=== PATIENT | female | born 1955 | race Caucasian/White ===

== ENCOUNTER → 2021-08-30 16:21 | Outpatient (CLI) | payer BC, SELFPAY ==
--- NOTE | 2021-08-30 16:30 | XR_ITS ---
PROCEDURE INFORMATION: Exam: XR Chest Exam date and time: 08/30/2021 4:30 PM Age: 66 years old Clinical indication: Cough; Additional info: Covid out patient TECHNIQUE: Imaging protocol: XR of the chest. Views: 1 view. COMPARISON: No relevant prior studies available. FINDINGS: Lungs: Unremarkable. No consolidation. Pleural spaces: Unremarkable. No pleural effusion. No pneumothorax. Heart/Mediastinum: Unremarkable. No cardiomegaly. Bones/joints: Unremarkable. IMPRESSION: No acute findings.
[2021-08-30 17:49] LABS: Basophils # 0.1 K/mm3 (0-0.2); Eosinophils # 0.2 K/mm3 (0.0-0.4); Eosinophils % 2.3 % (0.1-12.0); Hematocrit 43.8 % (37.0-47.0); Hemoglobin 14.3 g/dL (12.2-16.2); Lymphocytes # 2.2 K/mm3 (0.7-4.5); Lymphocytes % 32.9 % (10-50); Mean Corpuscular HGB Conc 32.7 g/dL (31.8-35.4); Mean Corpuscular Volume 94.9 fl (81-99); Mean Platelet Volume 8.5 fl (7.4-10.4); Monocytes # 0.4 K/mm3 (0.1-1.0); Monocytes % 6.2 % (1.7-9.3); Neutrophils # 3.9 K/mm3 (1.8-7.8); Neutrophils % 57.5 % (37.0-80.0); Platelet Count 242 K/mm3 (142-424); Red Blood Count 4.61 M/mm3 (4.20-5.40); Red Cell Distribution Width 13.7 % (11.5-17.5); White Blood Count 6.7 K/mm3 (4.8-10.8)
== END ==
PROVIDERS: PCP Nurse Practitioner; Visit Provider Nurse Practitioner
DX: Z20.822 Contact with and (suspected) exposure to COVID-19 (principal)
CPT/HCPCS: 36415; 71045; 85025; 87275; 87276; C9803; U0003; U0005

== ENCOUNTER → 2023-01-31 10:44 | Outpatient (CLI) | payer BC, MEDICARE, SELFPAY ==
[2023-01-31 18:36] LABS: Basophils % 0.4 % (0.1-2.0); Eosinophils # 0.2 K/mm3 (0.0-0.4); Eosinophils % 3.9 % (0.1-12.0); Hematocrit 39.1 % (37.0-47.0); Hemoglobin 12.2 g/dL (12.2-16.2); Lymphocytes # 1.7 K/mm3 (0.7-4.5); Lymphocytes % 27.6 % (10-50); Mean Corpuscular HGB Conc 31.3 g/dL (31.8-35.4); Mean Corpuscular Hemoglobin 29.8 pg (27.0-31.2); Mean Corpuscular Volume 95.1 fl (81-99); Monocytes # 0.4 K/mm3 (0.1-1.0); Monocytes % 6.4 % (1.7-9.3); Neutrophils # 3.7 K/mm3 (1.8-7.8); Neutrophils % 61.7 % (37.0-80.0); Platelet Count 241 K/mm3 (142-424); Red Blood Count 4.11 M/mm3 (4.20-5.40)
[2023-01-31 18:46] LABS: Alanine Aminotransferase 32 U/L (12-78); Albumin Level 4.1 g/dl (3.5-5.0); Albumin/Globulin Ratio 1.4 (1.1-1.8); Alkaline Phosphatase 85 U/L (38-126); Anion Gap 15.5 mEq/L (5-15); Aspartate Amino Transferase 34 U/L (14-36); Bilirubin,Total 0.5 mg/dl (0.2-1.3); Blood Urea Nitrogen 23 mg/dl (7-17); Carbon Dioxide 27 mmol/L (22.0-30.0); Chloride 102 mmol/L (98-107); Chol/HDL Ratio 4.3 (1-3.5); Cholesterol 150 mg/dl (140-200); Estimated Glomerular Filt Rate 72 ml/min (>60); GFR (African American) 87 ML/MIN (>60); Glucose 110 mg/dl (74-100); HDL Cholesterol 35 mg/dl (40-60); Potassium 4.5 mmoL/L (3.5-5.1); Sodium 140 mmol/L (136-145); Total Protein,Serum 7.1 g/dl (6.3-8.2); Triglycerides 324 mg/dl (30-150); VLDL Cholesterol 65 mg/dL (0-40)
[2023-01-31 18:49] LABS: Hemoglobin A1C 5.9 % (4.0-6.0)
[2023-01-31 18:58] LABS: Direct LDL Cholesterol 60.39 mg/dL (100-129)
[2023-01-31 19:01] LABS: Free T4 (Free Thyroxine) 1.04 ng/dl (0.78-2.19)
[2023-01-31 19:15] LABS: Thyroid Stimulating Hormone 7.57 uIU/mL (0.465-4.68)
[2023-01-31 19:34] LABS: Vitamin B12 346 pg/mL (239-931)
[2023-01-31 20:04] LABS: 25-OH Vitamin D, Total 39.3 ng/mL (30-100)
== END ==
PROVIDERS: PCP Nurse Practitioner; Visit Provider Nurse Practitioner
DX: E03.9 Hypothyroidism, unspecified (principal); E55.9 Vitamin D deficiency, unspecified; E78.5 Hyperlipidemia, unspecified; I10 Essential (primary) hypertension; M19.90 Unspecified osteoarthritis, unspecified site; Z79.899 Other long term (current) drug therapy
CPT/HCPCS: 80053; 80061; 82306; 82607; 83036; 84439; 84443; 85025

== ENCOUNTER → 2023-06-12 09:10 | Outpatient (CLI) | payer BC, MEDICARE, SELFPAY ==
[2023-06-12 19:08] LABS: Alanine Aminotransferase 39 U/L (12-78); Albumin Level 3.9 g/dl (3.5-5.0); Albumin/Globulin Ratio 1.2 (1.1-1.8); Alkaline Phosphatase 73 U/L (38-126); Anion Gap 14.1 mEq/L (5-15); Aspartate Amino Transferase 46 U/L (14-36); Bilirubin,Total 0.3 mg/dl (0.2-1.3); Blood Urea Nitrogen 30 mg/dl (7-17); Carbon Dioxide 25 mmol/L (22.0-30.0); Chloride 102 mmol/L (98-107); Chol/HDL Ratio 5.6 (1-3.5); Cholesterol 152 mg/dl (140-200); Estimated Glomerular Filt Rate 50 ml/min (>60); GFR (African American) 60 ML/MIN (>60); Globulin 3.2 g/dL (1.3-3.2); Glucose 111 mg/dl (74-100); HDL Cholesterol 27 mg/dl (40-60); Potassium 4.1 mmoL/L (3.5-5.1); Sodium 137 mmol/L (136-145); Total Protein,Serum 7.1 g/dl (6.3-8.2)
[2023-06-12 19:15] LABS: Triglycerides 436 mg/dl (30-150)
[2023-06-12 19:19] LABS: Direct LDL Cholesterol 63.47 mg/dL (100-129)
[2023-06-12 19:20] LABS: Creatinine,Urine Random 134 mg/dL (Not Estab.)
[2023-06-12 19:26] LABS: 25-OH Vitamin D, Total 27.4 ng/mL (30-100); Free T4 (Free Thyroxine) 1.16 ng/dl (0.78-2.19)
[2023-06-12 19:28] LABS: Microalbumin/Creatinine Ratio 12.4
[2023-06-12 19:39] LABS: Thyroid Stimulating Hormone 7.93 uIU/mL (0.465-4.68)
== END ==
LOC: LAB.DROPOF 06-13 09:11
PROVIDERS: PCP Nurse Practitioner; Visit Provider Nurse Practitioner
DX: E03.9 Hypothyroidism, unspecified (principal); E55.9 Vitamin D deficiency, unspecified; E78.5 Hyperlipidemia, unspecified; F41.8 Other specified anxiety disorders; I10 Essential (primary) hypertension; M19.90 Unspecified osteoarthritis, unspecified site; Z68.42 Body mass index [BMI] 45.0-49.9, adult
CPT/HCPCS: 80053; 80061; 82043; 82306; 82570; 83036; 84439; 84443

== ENCOUNTER → 2023-06-20 09:23 | Outpatient (CLI) | payer BC, MEDICARE, SELFPAY ==
[2023-06-20 19:00] LABS: Adenovirus,PCR Not Detected (NotDetected); Coronavirus 19, PCR Not Detected (NotDetected); Coronavirus 229E Not Detected (NotDetected); Coronavirus NL63 Not Detected (NotDetected); Coronavirus OC43 Not Detected (NotDetected); Coronovirus HKU1,PCR Not Detected (NotDetected); Human Metapneumovirus Not Detected (NotDetected); Influenza A, PCR Not Detected (NotDetected); Influenza AH1, 2009 Not Detected (NotDetected); Influenza AH1, PCR Not Detected (NotDetected); Influenza AH3,PCR Not Detected (NotDetected); Influenza B, PCR Not Detected (NotDetected); Parainfluenza 1, PCR Not Detected (NotDetected); Parainfluenza 2, PCR Not Detected (NotDetected); Parainfluenza 3, PCR Not Detected (NotDetected); Parainfluenza 4, PCR Not Detected (NotDetected); Respiratory Syncytial Virus Not Detected (NotDetected); Rhinovirus/Enterovirus Not Detected (NotDetected)
== END ==
PROVIDERS: PCP Nurse Practitioner; Visit Provider Nurse Practitioner
DX: J06.9 Acute upper respiratory infection, unspecified (principal); R51.9 Headache, unspecified; R05.8 Other specified cough; R09.81 Nasal congestion; R53.81 Other malaise
CPT/HCPCS: 87632; 87635